=== PATIENT | male | born 1995 | race Caucasian/White ===

== ENCOUNTER 2025-02-04 11:55 | Inpatient (IN) | payer OTHER, MEDICAID, SELFPAY ==
[2025-02-04] VITALS (12 sets, daily range): BP systolic 113–150; BP diastolic 62–86; PULSE 67–124; RESP 16–22; TEMP 36.8–37.2; O2SAT 95–98; BMI 29.5; BMI 30.2
--- NOTE | ~2025-02-04 | XR_ITS ---
EXAMINATION: XR CHEST CLINICAL INFORMATION: Rhabdomyolysis COMPARISON: None available. TECHNIQUE: Frontal view of the chest was obtained. FINDINGS: Mild prominence of the interstitial markings. No hyperinflation. No consolidation, pleural effusion or pneumothorax. Cardiomediastinal silhouette size is normal. Osseous structures are intact. XR/XR chest 1V IMPRESSION: Probable mild interstitial lung edema in the correct clinical settings. Electronically signed by: Malik Means MD 02/04/2025 02:00 PM EDT
--- NOTE | 2025-02-04 12:03 | ECG_ITS ---
Test Reason : PALPATATIONS Blood Pressure : */* mmHG Vent. Rate : 94 BPM Atrial Rate : 94 BPM P-R Int : 162 ms QRS Dur : 100 ms QT Int : 354 ms P-R-T Axes : 52 1 55 degrees QTcB Int : 442 ms Normal sinus rhythm Normal ECG No previous ECGs available Referred By: Anuradha Rivers Electronically Signed By: CHILO DODSON
--- NOTE | 2025-02-04 12:07 | ED_ITS ---
HPI - General Adult General Chief complaint: General Medical Stated complaint: HIGH HR,HEAT EXPOSURE @ [employer] Time Seen by Provider: 02/04/25 11:58 Source: patient and EMS Mode of arrival: EMS Limitations: no limitations History of Present Illness ED Provider: DR. Rivers HPI narrative: 29-year-old male brought in by ambulance for evaluation of possible heat exhaustion, patient was at the [employer] training and performing drills 1st day while he was running with his duffle bag noticed by staff that patient got tired, overheated, fatigue, and felt palpitation and his heart rate was in the 170s patient was sent to the hospital for further evaluation and medical clearance. Patient stated that he had breakfast this morning, reporting very hot weather outside while he was doing his physical drills and training at [email or web address]. Patient reports no chest pain, no dizziness, felt little bit short of breath that he related to extensive exertion done at the [email or web address], patient overall feels fatigue and tired. Patient stated that he has no past medical history, feels no headache, no dizziness, no blurry vision, no chest pain, no abdominal pain, no nausea, no vomiting, no diarrhea. While patient's training patient had a small injury to the left 4th finger causing small laceration at the nail bed of the finger, otherwise no finger pain, with full range of motion. Related Data Home Medications ?Medication ?Instructions ?Recorded ?Confirmed No Known Home Meds 02/04/25 02/04/25 Allergies Allergy/AdvReac Type Severity Reaction Status Date / Time Penicillins Allergy Hives Verified 02/04/25 12:06 Review of Systems 2 Review of Systems: All other systems are reviewed and are negative Constitutional: Reports as per HPI and Reports no additional constitutional complaints Eyes: Reports as per HPI and Reports no additional eye complaints Reports system reviewed and no additional complaints, except as documented Cardiovascular: Reports as per HPI and Reports no additional cardiovascular complaints Respiratory: Reports as per HPI and Reports no additional respiratory complaints Gastrointestinal: Reports as per HPI and Reports no additional gastrointestinal complaints Genitourinary: Reports no additional female genitourinary complaints Musculoskeletal: Reports no additional musculoskeletal complaints Skin/Breast: Reports system reviewed and no additional complaints, except as docu Psychiatric: Reports no additional psychiatric complaints Endocrine: Reports no additional endocrine complaints Hematologic/Lymphatic: Reports no additional hematologic/lymphatic complaints Allergic/Immunologic: Reports no additional allergic/immunologic complaints Reports system reviewed and no additional complaints, except as documented and Reports Abnormal speech present [facility] Social History Social History Smoked in Last 30 Days: No Use of substances other than those prescribed or required for medical reasons: No Advance Directives: No Advance Directives Information Provided: No Do you have a plan to hurt others: No Plan Physical Exam ED Vital Signs: Vital Signs - 24 hr 02/04/25 12:03 02/04/25 12:06 02/04/25 12:12 Temperature 98.3 F Pulse Rate 106 H 108 H 99 Respiratory Rate 22 H Blood Pressure 130/70 130/70 113/77 Pulse Oximetry 96 Oxygen Delivery Method Room Air 02/04/25 12:13 02/04/25 12:13 02/04/25 12:13 Temperature 98.3 F Pulse Rate 101 H 106 H 113 H Respiratory Rate 22 H Blood Pressure 129/66 129/66 Pulse Oximetry 96 Oxygen Delivery Method Room Air 02/04/25 12:32 02/04/25 12:35 02/04/25 12:36 Temperature 99 F Pulse Rate 89 89 101 H Respiratory Rate 22 H Blood Pressure 116/62 116/62 113/65 Pulse Oximetry 95 Oxygen Delivery Method Room Air 02/04/25 12:37 Temperature Pulse Rate 109 H Respiratory Rate Blood Pressure 125/68 Pulse Oximetry Oxygen Delivery Method BMI result Body Mass Index 29.5 Vital signs have been reviewed and appear to be correct. Blood pressure elevated. Heart rate normal. Respiratory rate normal. Temperature normal. Oxygen saturation normal. Appearance: Alert. Oriented X3. No acute distress. Head: Normal external exam. Normocephalic. Atraumatic. No Smith signs noted. No raccoon eyes noted Eyes: PERRLA. EOMI. Conjunctiva and sclera normal. Eyelids normal. ENT: TM's Normal. Pharynx normal. Uvula midline. Moist mucous membranes. No trismus noted. No drooling noted. No muffled voice noted. Neck: Normal inspection. Neck supple. FROM. No adenopathy. Thyroid Normal. No meningeal signs. No neck mass noted. CVS: Normal heart rate and rhythm. Heart sound normal. No murmurs noted. Pulses normal throughout. Respiratory: No respiratory distress. Painless inspiration. Breath sounds normal. No wheezes/rales/rhonchi noted. Chest nontender. No accessory muscle usage noted or decreased air movement noted. Abdomen: Soft and nontender. Bowel sounds normal in all 4 quadrants. No distention noted. No organomegaly noted. No visible injury noted. Back: No CVA tenderness. Full range of motion noted. Skin: Skin warm and dry. Normal skin color. Normal skin turgor. No rashes/lesions/lacerations noted. Extremities: No lower extremity edema. Extremities exhibit normal range of motion. Extremities nontender. Neuro: Oriented X 3. Cranial nerve exam: II-XII are grossly intact No motor deficit. No sensory deficit. Reflexes normal. Course Reevaluation(s) Reevaluation #1: BANDAR secondary to mild rhabdomyolysis after having an extensive exercise in the extreme hot weather, elevated troponin with no chest pain or ST-elevation on the EKG. The case was discussed with Dr. Yee the plan was to continue with IV hydration, serial troponin. Leukocytosis likely secondary to stress. Time: 13:18 Medications Administered Generic Name Dose Route Start Last Admin Trade Name Freq PRN Reason Stop Dose Admin Lactated Ringer's 1,000 mls @ 125 mls/hr 02/04/25 14:15 02/04/25 14:14 Lr IVCONT 125 mls/hr .Q8H SHANE Administration Discontinued Medications Generic Name Dose Route Start Last Admin Trade Name Freq PRN Reason Stop Dose Admin Sodium Chloride 1,000 mls @ 999 mls/hr 02/04/25 12:03 02/04/25 13:37 Ns IV 02/04/25 13:03 Infused .Q1H1M ONE Infusion Lactated Ringer's 1,000 mls @ 999 mls/hr 02/04/25 13:00 02/04/25 13:34 Lr IV 02/04/25 14:00 999 mls/hr .Q1H1M SHANE Administration Medical Decision Making Differential Diagnosis Differential Diagnoses: The differential diagnosis associated with the presentation includes (Rhabdomyolysis, heat stroke, heat exhaustion, ACS, BANDAR, electrolyte derangement, severe anemia.) Admission/Observation Consideration of admission/observation: Escalation of care including admission/observation considered Consult Healthcare Provider Management of the patient was discussed with: Hospitalist (Dr. Armenta) and Business Area Manager (Dr. Yee) Lab Data MDM Lab Attestation statement: I reviewed the patient's lab results. 02/04/25 12:23 02/04/25 12:23 Labs: Lab Results 02/04/25 Range/Units 12:23 WBC 17.7 H (4.8-10.8) X10*3/uL RBC 4.78 (4.60-5.80) X10*6/uL Hgb 14.5 (14.0-18.0) g/dl Hct 38.9 L (42.0-52.0) % MCV 81.4 (80.0-98.0) fL MCH 30.3 (27.0-33.0) pg MCHC 37.3 H (31.0-36.0) g/dl RDW 12.4 (11.0-16.0) % Plt Count 251 (160-400) X10*3/uL MPV 9.5 (9.4-12.4) fL Immature Gran % (Auto) Cancelled Neut % (Auto) Cancelled Lymph % (Auto) Cancelled [place] % (Auto) Cancelled Eos % (Auto) Cancelled Baso % (Auto) Cancelled Lymph # (Auto) Cancelled [place] # (Auto) Cancelled Eos # (Auto) Cancelled Baso # (Auto) Cancelled Abs Immat Gran (auto) Cancelled Absolute Neuts (auto) Cancelled Absolute Nucleated RBC 0.000 (0.0-0.012) X10*3/uL Nucleated RBC % (auto) 0.0 (0.0-0.2) /100WBC Neutrophils % (Manual) 90 H (45-73) % Band Neutrophils % 3 (3-5) % Lymphocytes % (Manual) 4 L (20-40) % Monocytes % (Manual) 3 (2-11) % Abs Neuts (Manual) 16.5 H (2.0-8.3) X10*3/uL Lymphocytes # (Manual) 0.7 L (1.2-4.9) X10*3/uL Monocytes # (Manual) 0.5 (0.1-1.2) X10*3/uL Platelet Estimate NORMAL (NORMAL) Plt Morphology Comment NORMAL RBC Morphology NORMAL Sodium 140 (135-145) mmol/L Potassium 3.6 (3.3-5.1) mmol/L Chloride 106 (96-108) mmol/L Carbon Dioxide 23 (22-29) mmol/L Anion Gap 15 (12-20) BUN 18 H (9-16) mg/dL Creatinine 1.52 H (0.5-1.4) mg/dL Estim Creat Clear Calc 80.7 Estimated GFR 54 Random Glucose 91 (60-115) mg/dL Calcium 9.4 (8.4-10.2) mg/dL Total Bilirubin 0.6 (0.0-1.0) mg/dL Direct Bilirubin 0.3 (0.0-0.5) mg/dL AST 86 H (5-37) U/L ALT 101 H (0-40) U/L Alkaline Phosphatase 115 (39-117) U/L Total Creatine Kinase 2654 H (38-174) U/L Troponin I High Sens 234.8 H* (<3.5-35.0) ng/L Total Protein 7.4 (6.5-8.0) g/dL Albumin 4.8 (3.5-5.0) g/dL Lipase 21 (8-78) U/L Independent Interpretation I performed an independent interpretation of an: EKG (Normal sinus rhythm at 94 beats per minutes, normal intervals, no ST-T-T changes, no old EKG to compare.) and Plain X-Ray (Chest: Probable mild interstitial lung edema in the correct clinical settings.) Radiology Impression Discussion of test interpretation with radiology: I have reviewed the radiologist's reading. Critical Care Time Critical Care Time Critical Care Time: Yes Total Critical Care Time: 40 Attestation: The patient was critically ill with a high probability of imminent or life- threatening deterioration. I spent greater than 30 minutes of discontinuous time evaluating the patient, delivering critical care at the bedside, discussing evaluating data with consultants. Critical care time does not include time spent performing separately billable procedures or teaching. Time spent performing critical care was 40 minutes. Discharge Plan Discharge Clinical Impression: Acute renal failure due to rhabdomyolysis, Elevated troponin Patient Disposition: Admitted As Inpatient
[2025-02-04 12:28] LABS: Hematocrit 38.9 % (42.0-52.0); Hemoglobin 14.5 g/dl (14.0-18.0); Mean Corpuscular HGB Conc 37.3 g/dl (31.0-36.0); Mean Corpuscular Hemoglobin 30.3 pg (27.0-33.0); Mean Corpuscular Volume 81.4 fL (80.0-98.0); NRBC Abs Auto 0.000 X10*3/uL (0.0-0.012); NRBC Pct Auto 0.0 /100WBC (0.0-0.2); Platelet Count 251 X10*3/uL (160-400); Red Blood Count 4.78 X10*6/uL (4.60-5.80)
[2025-02-04 12:30] LABS: WBC ABN SCTR FOR CBC 1; White Blood Count 17.7 X10*3/uL (4.8-10.8)
[2025-02-04 12:45] LABS: Alanine Aminotransferase 101 U/L (0-40); Albumin Level 4.8 g/dL (3.5-5.0); Alkaline Phosphatase 115 U/L (39-117); Anion Gap 15 (12-20); Aspartate Amino Transferase 86 U/L (5-37); Blood Urea Nitrogen 18 mg/dL (9-16); Calcium 9.4 mg/dL (8.4-10.2); Carbon Dioxide 23 mmol/L (22-29); Chloride 106 mmol/L (96-108); Creatinine Clr Calc Pharmacy 80.7; Estimated Glomerular Filt Rate 54; Lipase 21 U/L (8-78); Potassium 3.6 mmol/L (3.3-5.1); Sodium 140 mmol/L (135-145); Total Protein 7.4 g/dL (6.5-8.0)
[2025-02-04 12:54] LABS: Troponin-I High Sensitivity 234.8 ng/L (<3.5-35.0)
[2025-02-04 12:56] LABS: Band Neutrophils Percent 3 % (3-5); Lymphocytes Absolute Manual 0.7 X10*3/uL (1.2-4.9); Lymphocytes Percent Manual 4 % (20-40); Monocytes Absolute Manual 0.5 X10*3/uL (0.1-1.2); Monocytes Percent Manual 3 % (2-11); Neutrophils Absolute Manual 16.5 X10*3/uL (2.0-8.3); Neutrophils Percent Manual 90 % (45-73)
[2025-02-04 12:58] LABS: RBC Morphology NORMAL
[2025-02-04] MEDS: Lactated Ringers 1,000 ML 999 ML IV (13:34)
--- NOTE | 2025-02-04 14:07 | P.HPHOSP_ITS ---
History of Present Illness Date of Service: 02/04/25 Chief Complaint: fatigue 29M no significant medical history presented with fatigue. Patient brought in by ambulance from [facility]. 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 He started to feel weak, overheated and tired. Noted to be tachycardic and hypertensive. Rested but tachycardia did not resolve so EMS was called. Denies any chest pain, shortness breath. In ED lab significant for a creatinine of 1.52, AST 86/ALT 101 (patient reports he had elevated transaminases on outpatient testing previously), total CPK 2654, troponin 234 - normal EKG, Review of Systems 2 Review of Systems: Yes all other systems are reviewed and are negative [facility] Social History Smoked in Last 30 Days: No Use of substances other than those prescribed or required for medical reasons: No Do you have a plan to hurt others: No Plan Meds Allergies Allergy/AdvReac Type Severity Reaction Status Date / Time Penicillins Allergy Hives Verified 02/04/25 12:06 Active Medications: Current Medications Acetaminophen (Acetaminophen 325 Mg Tablet) 650 mg PO Q6H PRN PRN Reason: Pain, Mild 1-3,fever,headache Calcium Carbonate (Calcium Carbonate 750 Mg Tab.Chew) 750 mg PO Q4H PRN PRN Reason: Heartburn Lactated Ringer's (Lr) 1,000 mls @ 125 mls/hr IVCONT .Q8H SHANE Magnesium Hydroxide (Milk Of Magnesia 30 Ml Oral.Susp) 30 ml PO DAILY PRN PRN Reason: Constipation Melatonin (Melatonin 3 Mg Tablet) 6 mg PO BEDTIME PRN PRN Reason: Insomnia Sodium Chloride (0.9 % Sodium Chloride Flush 3 Ml Syringe) 3 ml IVFLUSH QSHIFT SHANE Physical Exam 2 Vital Signs and Narrative: Vital Signs: Last Vital Signs Temp 99 F 02/04/25 12:32 Pulse 109 H 02/04/25 12:37 Resp 22 H 02/04/25 12:32 BP 125/68 02/04/25 12:37 Pulse Ox 95 02/04/25 12:32 O2 Del Method Room Air 02/04/25 12:32 BMI result Body Mass Index 29.5 General: AO X 3, no acute distress Resp: CTA bilateral, no accessory muscles used CVS: S1,S2,RRR GI: soft, non tender, non distended Neuro: motor grossly intact, alert Psych: appropriate affect, appropriate insight malar rash Results Labs 02/04/25 12:23 02/04/25 12:23 Labs: Laboratory Results - last 24 hr 02/04/25 12:23 MCV 81.4 MCH 30.3 MCHC 37.3 H RDW 12.4 Plt Count 251 MPV 9.5 Immature Gran % (Auto) Cancelled Neut % (Auto) Cancelled Lymph % (Auto) Cancelled [place] % (Auto) Cancelled Eos % (Auto) Cancelled Baso % (Auto) Cancelled Lymph # (Auto) Cancelled [place] # (Auto) Cancelled Eos # (Auto) Cancelled Baso # (Auto) Cancelled Abs Immat Gran (auto) Cancelled Absolute Neuts (auto) Cancelled Absolute Nucleated RBC 0.000 Nucleated RBC % (auto) 0.0 Neutrophils % (Manual) 90 H Band Neutrophils % 3 Lymphocytes % (Manual) 4 L Monocytes % (Manual) 3 Abs Neuts (Manual) 16.5 H Lymphocytes # (Manual) 0.7 L Monocytes # (Manual) 0.5 Platelet Estimate NORMAL Plt Morphology Comment NORMAL RBC Morphology NORMAL Anion Gap 15 Estim Creat Clear Calc 80.7 Estimated GFR 54 Random Glucose 91 Calcium 9.4 Total Bilirubin 0.6 Direct Bilirubin 0.3 AST 86 H ALT 101 H Alkaline Phosphatase 115 Total Creatine Kinase 2654 H Total Protein 7.4 Albumin 4.8 Lipase 21 Imaging Radiologist's Impressions: Impressions Chest X-Ray 02/04/25 13:45 IMPRESSION: Probable mild interstitial lung edema in the correct clinical settings. Electronically signed by: Malik Means MD 02/04/2025 02:00 PM EDT RP Assessment and Plan (1) Elevated troponin: Status: Acute Plan 29M no significant medical history presented with fatigue found to have abnormal troponin, CPK, elevated creatinine, elevated transaminases Acute kidney injury due to acute rhabdomyolysis IV fluids, monitor BMP and CPK Elevated troponin disproportionate to level of rhabdo Check repeat, echo, cardio eval Elevated transaminases Patient reports these are chronic Check A1c, iron studies, viral hepatitis, MIRTA Low risk for DVT-early ambulation Full Code Quality Stroke Does the patient have a stroke diagnosis?: No VTE Prior VTE?: No VTE Risk Level:: Medical - low VTE Device Contraindication: Treatment Not Indicated VTE Drug Contraindication: Treatment Not Indicated
[2025-02-04] MEDS: Lactated Ringers 1,000 ML 125 ML IVCONT ×2 (14:14→22:05)
--- NOTE | 2025-02-04 15:08 | PHA.MEDREC ---
Pharmacy Consult ? Medication Reconciliation Pharmacy has completed the medication reconciliation. Patient confirmed that he does not take any medication at home.
[2025-02-04 15:39] LABS: Appearance Urine Clear; Glucose Urine UA Negative (Negative); PH 5.5 (5.0-9.0); Specific Gravity - Urine <= 1.005 (1.005-1.025); UMIC TRIGGER UACC YES
--- OUTSIDE RECORDS SUMMARY | 2025-02-04 15:44 | XMS_ITS | Encounter Summary ---
Author Organization [facility] Address [address] [place] [address] Care Team Providers Care Aircraft Ordnance Systems Mechanic Name Role Phone Demi Lee MD Primary Care Provider [phone] Demi Lee MD Primary Care Provider [phone] Encounter Details Date Type Department Care Team (Late Contact Info) Description 09/01/2018 Orders Only [facility] Nephrology [address] [phone] Amanda Rick MD [address] [place] [id number] Social History Tobacco Use Types Packs/Day Years Used Date Smoking Tobacco: Never Smokeless Tobacco: Never Alcohol Use Standard Drinks/Week Comments Yes 0 (1 standard drink = 0.6 oz pur e alcohol) <12 beers/week Sex and Gender Information Value Date Recorded Sex Assigned at Not on file Legal Sex Male 12:44 AM EDT Gender Identity Male 10/17/2023 11:40 AM EDT Sexual Orientation Not on file documented as of this encounter Plan of Treatment Upcoming Encounters Date Type Department Care Team (Late Contact Info) Description 07/09/2025 9:05 AM EST CPE - Comprehensive Physical Exam [facility] [address] [place], [place] [address] [place] [id number] Charity Oliveira NP [address] [place] [address] CPE documented as of this encounter Procedures * Due to [place] M-Audio law, this organization might not be sharing negative HIV tests. Procedure Name Priority Date/Time Associated Diagnosis Comments URINE PROTEIN, TOTAL,RANDOM (W/O CREATININE) Routine 09/01/2018 12:14 PM EST Unilateral agenesis of kidney ALBUMIN (MICROALBUMIN), RANDOM URINE, WITH CREATININE Routine 09/01/2018 12:14 PM EST Unilateral agenesis of kidney RENAL FUNCTION PANEL (W/ EGFR) Routine 09/01/2018 12:14 PM EST Unilateral agenesis of kidney documented in this encounter Results * Due to [place] M-Audio law, this organization might not be sharing negative HIV tests. * RENAL FUNCTION PANEL (W/ EGFR) (09/01/2018 12:14 PM EST) Glucose 88 65 - 99 mg/dL [facility] Comment:Fasting reference in terval Urea Nitrogen Blood (BUN) 17 7 - 25 mg/dL [facility] Creatinine 1.08 0.60 - 1.35 mg/dL [facility] EGFR 96 > OR = 60 mL/min/1. 73m2 [facility] GFR () 111 > OR = 60 mL/min/1. 73m2 [facility] BUN/Creatinine Ratio NOT APPLICABLE 6 - 22 (calc) [facility] Sodium 136 135 - 146 mmol/L [facility] Potassium 4.0 3.5 - 5.3 mmol/L [facility] Chloride 102 98 - 110 mmol/L [facility] Carbon dioxide 27 20 - 32 mmol/L [facility] Calcium 9.4 8.6 - 10.3 mg/dL [facility] Phosphate 2.8 2.5 - 4.5 mg/dL [facility] Albumin 4.5 3.6 - 5.1 g/dL [facility] 09/01/2018 12:1 4 PM EST 09/02/2018 1:07 AM EST Narrative Resulting Agency Comment [id number] Amanda Rick MD LABORATORY Final Result Performing Organization Address City/State/[facility] Co de Phone Number [facility] [address] [place] [address] * ALBUMIN (MICROALBUMIN), RANDOM URINE, WITH CREATININE (09/01/2018 12:14 PM EST) Creatinine (Urine) 114 20 - 320 mg/dL [facility] Albumin (Urine) 0.4 mg/dL [facility] Comment: Reference Range Not established Albumin/Creatinine (Urine) 4 <30 mcg/mg creat [facility] Comment: The ADA defines abnormalities in albumin excretion as follows: Category Result (mcg/mg creatinine) Normal <30 Microalbuminuria 30-299 Clinical albuminuria > OR = 300 The ADA recommends that at least two of three specimens collected within a 3-6 month period be abnormal before considering a patient to be within a diagnostic category. 09/01/2018 12:1 4 PM EST 09/02/2018 1:07 AM EST Narrative Resulting Agency Comment [id number] Amadna Rick MD LABORATORY Final Result Performing Organization Address [facility] de Phone Number [facility] [address] [place] [address] * URINE PROTEIN, TOTAL,RANDOM (W/O CREATININE) (09/01/2018 12:14 PM EST) Protein (Urine) 7 5 - 25 mg/dL [facility] 09/01/2018 12:1 4 PM EST 09/02/2018 1:07 AM EST Narrative Resulting Agency Comment [id number] Amanda Rick MD LABORATORY Final Result Performing Organization Address [facility] de Phone Number [facility] [address] [place] [address] documented in this encounter Visit Diagnoses Diagnosis 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
--- OUTSIDE RECORDS SUMMARY | 2025-02-04 15:44 | XMS_ITS | Referral Summary ---
Author Organization [facility] Address [address] [place] [address] Care Team Providers Care Construction Executive Name Role Phone Demi Lee MD Primary Care Provider [phone] Encounters * This document contains information received from the source organization and may not represent a complete record from that organization. Date Type Department Care Team Description 12/04/2024 Telephone [facility] [address] [place] [address] Telephone Intake, Staff PAC Test Result Request 11/23/2024 11:00 AM EDT Clinical Support [facility] Cardiology [address] [place] [address] Ari Medina LPN Pre-employment examination 11/21/2024 3:30 PM EDT Procedure visit [facility] [address] [place] [address] Sherrill Keen, AUD, CCC-A Hearing loss of left ear, unspecified hearing loss type (Primary Dx); Encounter for hearing conservation and treatment 11/19/2024 1:54 PM EDT - 11/19/2024 11:59 PM EDT Hospital Encounter [facility] Pulmonary Function Lab [address] [place] [address] Pre-employment examination Discharge Disposition: Home or Self Care (01) from Last 3 Months Social History Tobacco Use Types Packs/Day Years Used Date Smoking Tobacco: Never Assessed Sex and Gender Information Value Date Recorded Sex Assigned at Male 11/16/2024 12:21 PM EDT Legal Sex Male 4:33 AM EDT Gender Identity Not on file Sexual Orientation Not on file Plan of Treatment Not on file Procedures * Due to [place] itravel law, this organization might not be sharing negative HIV tests. Procedure Name Priority Date/Time Associated Diagnosis Comments ECG 12-LEAD Routine 11/23/2024 10:55 AM EDT Pre-employment examination HEART & VASCULAR - SCANNED 11/23/2024 PULMONARY FUNCTION TEST Routine 11/19/2024 1:58 PM EDT Pre-employment examination from Last 3 Months Results * Due to [place] itravel law, this organization might not be sharing negative HIV tests. * ECG 12 lead For Preop? No (11/23/2024 10:55 AM EDT) Ventricular Rate EKG 77 BPM MUSE EKG Atrial Rate 77 BPM MUSE EKG AZ Interval 156 ms MUSE EKG QRS Interval 100 ms MUSE EKG QT Interval 366 ms MUSE EKG QTC Interval 414 ms MUSE EKG P [place] 56 degrees MUSE EKG R [place] 5 degrees MUSE EKG T Wave [place] 36 degrees MUSE EKG 11/23/2024 10:5 5 AM EDT 11/28/2024 12:44 PM EDT Impressions MUSE EKG - 11/28/2024 12:44 PM EDT NORMAL SINUS RHYTHM NORMAL ECG NO PREVIOUS ECGS AVAILABLE Confirmed by Luigi Tejeda ([id number]) on 11/28/2024 12:44:17 PM us Lori Jenkins [employer] ECG ORDERABLES Final Result MUSE EKG * HEART & VASCULAR - SCANNED (11/23/2024) Anatomical Region Laterality Modality Other us Onbase Scan Myah SCANNED PROCEDURES Final Resu lt * Pulmonary Function Test UNV; Spirometry; Spirometry alone (No bronchodilator); Pre employment [employer](11/19/2024 1:58 PM EDT) FVC (L) 5.62 L [facility] FVC % Predicted 112 % [facility] FEV1 (L) 4.99 L [facility] FEV1 % Predicted 120 % [facility] FEV1/FVC Ratio 89 % [facility] 11/19/2024 1:58 PM EDT Narrative [facility] - 11/19/2024 1:58 PM EDT There is no ventilatory impairment demonstrated by spirometry. The findings are within normal limits. Lori Jenkins [employer] PFT ORDERABLES Final Result [facility] from Last 3 Months Insurance [place] Care Teams Construction Executive Relationship Specialty Start Date End Date Demi Lee MD [address] [place] [id number] PCP - General Internal Medicine 11/16/24
--- NOTE | 2025-02-04 16:00 | CA_ITS ---
Transthoracic Echocardiogram Patient (Last, First, Middle): Yoni Hawkins, Gender: Male Date of : 1995 Age: 29 Procedure Date: 02/04/2025 Procedure Type: Transthoracic Echocardiogram Location: ER Height: 177.8 cm Weight: 92.99 kg BSA: 2.11 m2 Heart Rate: 87 bpm BP: 125 / 68 mmHg [employer]indery Worker: SB Referring MD: Chapincito Armenta MD Symptoms: elevated trop Study Quality: Adequate w contrast ECG Rhythm: Sinus Conclusions: - The left ventricular systolic function is mildly decreased. The calculated ejection fraction is 48% by biplane method. - No obvious valvular pathology seen on this study. Findings Procedure Information Contrast agent, definity, is being given per protocol without apparent complications. Left Ventricle Normal left ventricular cavity size. There is normal left ventricular wall thickness. The left ventricular systolic function is mildly decreased. The calculated ejection fraction is 48% by biplane method. There is mild global hypokinesis. Diastolic function is normal for age. Right Ventricle Normal right ventricular cavity size and systolic function. Atria Both atria are normal in size. Aortic Valve There is a normal trileaflet aortic valve. There is no aortic valve stenosis. There is no aortic valve regurgitation. Mitral Valve The mitral valve appears normal. There is trace mitral valve regurgitation. There is no mitral valve stenosis. Pulmonic Valve The pulmonic valve is likely normal. Tricuspid Valve Normal tricuspid valve structure. There is trace tricuspid valve regurgitation. There is no evidence of pulmonary hypertension. Great Vessels The asc aorta and aortic arch are normal in size. Venous The inferior vena cava is normal in size. Pericardium/Pleural There is no evidence of pericardial effusion. Prior Study Comparison No prior study available for comparison. Recommendations, Care & Conclusions No obvious valvular pathology seen on this study. Measurements 2D Linear Measurements IVSd: 0.79 0.6-0.9/0.6-1.0 cm LVIDd: 5.51 3.9-5.3/4.2-5.9 cm LVIDd Index: 2.61 2.4-3.2/2.2-3.1 cm/m2 LVIDs: 3.90 2.0-3.6 cm LVPWd: 0.65 0.7-1.1 cm LA Diam: 3.70 2.7-3.8/3.0-4.0 cm LAIDs Index: 1.75 1.5-2.3 cm/m2 LV Mass: 175.91 67-162/88-224 g LV Mass Index: 83.37 43-95/49-115 g/m2 LVOT Diam: 2.30 3.0+(-)1.3 cm 2D Systolic Function EF 4C: 45.30 >55% EF 2C: 50.40 >55% EF BiP: 47.50 >55% Mitral Valve MV Pk E: 0.91 MV PK A: 0.48 MV Decel Time: 188.00 E/A: 1.90 E'Lateral: 11.40 E'Medial: 8.81 E/E' Med: 10.30 E/E' Lat: 8.00 PHT: 55.00 MVA PHT: 4.00 Decel [place]: 4.82 Aortic Valve AoV Pk Sam: 1.21 AoV Pk Grad: 6.00 VONNIE: 4.12 LVOT LVOT Pk Sam: 1.21 LVOT Mn Sam: 0.87 LVOT VTI: 0.24 LVOT Pk Grad: 6.00 LVOT Mn Grad: 4.00 LVOT Diam: 2.30 LVOT Area: 4.15 Diastolic Function MV Pk E: 0.91 MV Pk A: 0.48 E/A: 1.90 E'Medial: 8.81 E/E' Med: 10.30 E' Laterial: 11.40 E/E' Lat: 8.00 Right Ventricle TAPSE (mm): 19.40 TVS' Sam: 13.40 Tricuspid Valve TR Pk Sam: 2.14 TR Pk Grad: 18.00 RA Press: 8.00 RVSP: 26.00 Great Vessels Aorta Sinus of Valsalva: 3.10 2.0-3.5 cm Ao Asc: 3.00 2.1-3.4 cm Ao Arch: 2.50 Pulmonary Veins Pulm Vein S/D 0.90 Pulmonary Valve PV Pk Sam: 0.89 Peak PV Grad: 3.00 Updated in Other Vendor System with Status of Final Andres Yee MD electronically signed on 02/04/2025 3:43:51 PM with status of Final
[2025-02-04 16:01] LABS: Troponin-I High Sensitivity 234.9 ng/L (<3.5-35.0)
[2025-02-05 03:20] VITALS: BP 122/67; PULSE 78; RESP 16; TEMP 36.6; O2SAT 98
[2025-02-05] MEDS: Lactated Ringers 1,000 ML 125 ML IVCONT (06:43)
[2025-02-05 07:41] LABS: Hematocrit 36.0 % (42.0-52.0); Hemoglobin 13.0 g/dl (14.0-18.0); Mean Corpuscular HGB Conc 36.1 g/dl (31.0-36.0); Mean Corpuscular Hemoglobin 30.2 pg (27.0-33.0); Mean Corpuscular Volume 83.7 fL (80.0-98.0); NRBC Abs Auto 0.000 X10*3/uL (0.0-0.012); NRBC Pct Auto 0.0 /100WBC (0.0-0.2); Platelet Count 200 X10*3/uL (160-400); Red Blood Count 4.30 X10*6/uL (4.60-5.80); White Blood Count 8.4 X10*3/uL (4.8-10.8)
[2025-02-05 07:58] LABS: Alanine Aminotransferase 94 U/L (0-40); Albumin Level 3.9 g/dL (3.5-5.0); Alkaline Phosphatase 95 U/L (39-117); Anion Gap 9 (12-20); Aspartate Amino Transferase 183 U/L (5-37); Blood Urea Nitrogen 14 mg/dL (9-16); Calcium 8.6 mg/dL (8.4-10.2); Carbon Dioxide 23 mmol/L (22-29); Chloride 116 mmol/L (96-108); Creatinine Clr Calc Pharmacy 114.9; Estimated Glomerular Filt Rate > 60; Hemoglobin A1C 114.6965 umol/L; Iron 94 mcg/dL (45-160); Percent Iron Saturation 41 % (15-50); Potassium 3.5 mmol/L (3.3-5.1); Sodium 144 mmol/L (135-145); Total Hemoglobin (HGBA1C) 3486.7427 umol/L; Total Iron Binding Capacity 232 mcg/dL (228-428); Total Protein 6.3 g/dL (6.5-8.0); Unsaturated Iron Binding 138 ug/dL
[2025-02-05 08:00] VITALS: BP 130/87; PULSE 73; RESP 18; TEMP 36.6; O2SAT 96
[2025-02-05 08:24] LABS: HBS Num1 > 1000.00 mIU/mL (0-7.99); HBc Num1 0.09 S/CO (0.00-0.79); HBsAGNum1 0.41 S/CO (0.00-0.99); Hepatitis B Surface Antigen Negative (Negative); ~HepC Num1 0.13 S/CO (0.00-0.79); ~Hepatitis B Surface Antibody REACTIVE (Nonreactive); ~Hepatitis C Antibody Nonreactive (Nonreactive)
--- NOTE | 2025-02-05 08:59 | MHC.CM.PN ---
CM met with Patient at bedside and addressed DO with him (original was given to Patient and a copy has been placed on the chart). Patient lives in a house with his and 14 month old Son and he is functionally independent. Home/self care is Patient's goal and CM has initiated and will follow for dc planning. PCP is Dr. Demi Lee and will transport at time of dc.
--- NOTE | 2025-02-05 09:21 | P.CONCA_ITS ---
History of Present Illness History of Present Illness Date of Service: 02/05/25 Chief complaint: Tachycardia, Trop Narrative: This is a cardiology consultation regarding elevated cardiac biomarkers. Patient was going through [employer] drills in the heat yesterday. He was holding duffel bags weighing more than 40 lb or so. In that context, it seems that he was feeling weak, over he did, tired. Then brought to the ER where he was tachycardic and with abnormal biomarkers including elevated kidney function as well as liver abnormalities. Elevated CK/troponin. Appears that he was having probably rhabdomyolysis related to exertion heat and humidity. Subsequently, admitted for further care. He has been getting IV fluids. Of note, no previous cardiac history. He did not have any exertional chest pain or shortness of breath or in fact anything clear-cut from cardiac standpoint. Today, he states he feels okay. Review of Systems 2 Review of Systems: Yes all other systems are reviewed and are negative Constitutional: Constitutional: Reports as per HPI and Reports no additional constitutional complaints Eyes: Eyes: Reports as per HPI and Denies no additional eye complaints ENT: Denies system reviewed and no additional complaints, except as documented and Reports as per HPI Cardiovascular: Cardiovascular: Reports as per HPI, Reports no additional cardiovascular complaints, Denies acrocyanosis, Denies cool extremities, Denies chest pain, Denies leg edema, Denies lightheadedness, Denies palpitations and Denies dyspnea Respiratory: Respiratory: Reports as per HPI, Denies no additional respiratory complaints and Denies dyspnea Gastrointestinal: Gastrointestinal: Reports as per HPI and Denies no additional gastrointestinal complaints Genitourinary: Genitourinary: Reports no additional male genitourinary complaints and Reports as per HPI Musculoskeletal: Musculoskeletal: Reports no additional musculoskeletal complaints and Reports as per HPI Integumentary/Breasts: Skin/Breast: Reports system reviewed and no additional complaints, except as docu Neurologic: Reports system reviewed and no additional complaints, except as documented and Reports as per HPI Psychiatric: Psychiatric: Reports no additional psychiatric complaints and Reports as per HPI Endocrine: Endocrine: Reports no additional endocrine complaints, Reports as per HPI and Denies palpitations Hematologic/Lymphatic: Hematologic/Lymphatic: Reports no additional hematologic/lymphatic complaints and Reports as per HPI Allergic/Immunologic: Allergic/Immunologic: Reports no additional allergic/immunologic complaints and Reports as per HPI [facility] Family History Family History Father No problems noted. Mother No problems noted. Social History Social History Patient Tobacco Use Status: Never used Tobacco Smoked in Last 30 Days: No Use of substances other than those prescribed or required for medical reasons: No Currently Displaying Signs/Symptoms of Drug Intoxication Withdrawal: No Advance Directives: No Advance Directives Information Provided: No Advance Directives on File: No Do you have a plan to hurt others: No Plan service: No Meds Allergies Allergy/AdvReac Type Severity Reaction Status Date / Time Penicillins Allergy Hives Verified 02/04/25 12:06 Active Medications: Current Medications Acetaminophen (Acetaminophen 325 Mg Tablet) 650 mg PO Q6H PRN PRN Reason: Pain, Mild 1-3,fever,headache Calcium Carbonate (Calcium Carbonate 750 Mg Tab.Chew) 750 mg PO Q4H PRN PRN Reason: Heartburn Lactated Ringer's (Lr) 1,000 mls @ 150 mls/hr IVCONT .Q6H40M [facility] Last Infusion: 02/05/25 08:58 Dose: 150 mls/hr Magnesium Hydroxide (Milk Of Magnesia 30 Ml Oral.Susp) 30 ml PO DAILY PRN PRN Reason: Constipation Melatonin (Melatonin 3 Mg Tablet) 6 mg PO BEDTIME PRN PRN Reason: Insomnia Sodium Chloride (0.9 % Sodium Chloride Flush 3 Ml Syringe) 3 ml IVFLUSH QSHIFT [facility] Last Admin: 02/05/25 08:59 Dose: Not Given Home Medications ?Medication ?Instructions ?Recorded ?Confirmed ?Last Taken ?Type No Known Home Meds 02/04/25 02/04/25 Un known History Physical Exam 2 Vital Signs: Vital Signs: Last Vital Signs Temp 97.8 F 02/05/25 08:00 Pulse 73 02/05/25 08:00 Resp 18 02/05/25 08:00 BP 130/87 02/05/25 08:00 Pulse Ox 96 02/05/25 08:00 O2 Del Method Room Air 02/05/25 08:00 BMI result Body Mass Index 30.2 Const: General: comfortable and no acute distress O rientation/consciousness: patient oriented x3 HEENT: Other: Unremarkable Head: Yes normal to inspection Neck: Neck: Yes normal visual inspection Chest: Chest palpation & inspection: normal inspection of the chest Resp: Auscultation: clear to auscultation bilaterally Cardio: Palpation: normal PMI Heart sounds: S1 normal heart sound present, S2 normal heart sound present, no gallops, no murmurs and no rubs GI: Palpation (GI): Soft to palpation Back/Spine/Pelvis: Other: unremarkable Skin: General skin exam: no rashes or lesions noted Neuro: General: patient oriented x3 Extrem: General: Yes normal to inspection Psych: Mental Status: mental status grossly normal Objective Labs and Meds 02/05/25 07:24 02/05/25 07:24 Lab results: Laboratory Results - last 24 hr 02/04/25 02/04/25 02/04/25 12:23 15:29 15:32 WBC 17.7 H RBC 4.78 Hgb 14.5 Hct 38.9 L MCV 81.4 MCH 30.3 MCHC 37.3 H RDW 12.4 Plt Count 251 MPV 9.5 Immature Gran % (Auto) Cancelled Neut % (Auto) Cancelled Lymph % (Auto) Cancelled [place] % (Auto) Cancelled Eos % (Auto) Cancelled Baso % (Auto) Cancelled Lymph # (Auto) Cancelled [place] # (Auto) Cancelled Eos # (Auto) Cancelled Baso # (Auto) Cancelled Abs Immat Gran (auto) Cancelled Absolute Neuts (auto) Cancelled Absolute Nucleated RBC 0.000 Nucleated RBC % (auto) 0.0 Neutrophils % (Manual) 90 H Band Neutrophils % 3 Lymphocytes % (Manual) 4 L Monocytes % (Manual) 3 Abs Neuts (Manual) 16.5 H Lymphocytes # (Manual) 0.7 L Monocytes # (Manual) 0.5 Platelet Estimate NORMAL Plt Morphology Comment NORMAL RBC Morphology NORMAL Sodium 140 Potassium 3.6 Chloride 106 Carbon Dioxide 23 Anion Gap 15 BUN 18 H Creatinine 1.52 H Estim Creat Clear Calc 80.7 Estimated GFR 54 Random Glucose 91 Estimat Average Glucose Hemoglobin A1c % Calcium 9.4 Iron TIBC % Saturation Unsat Iron Binding Total Bilirubin 0.6 Direct Bilirubin 0.3 AST 86 H ALT 101 H Alkaline Phosphatase 115 Total Creatine Kinase 2654 H Troponin I High Sens 234.8 H* 234.9 H* Total Protein 7.4 Albumin 4.8 Lipase 21 Urine Color Yellow Urine Appearance Clear Urine pH 5.5 Ur Specific [place] <= 1.005 Urine Protein Negative Urine Glucose (UA) Negative Urine Ketones Trace Urine Blood Large (3+) H Urine Nitrite Negative Ur Leukocyte Esterase Negative Urine RBC 0-2 Urine WBC 0-5 Ur Squamous Epith Cells 0-2 Urine Bacteria None Seen Hyaline Casts 0-2 Hep Bs Antigen Hep Bs Antibody Hep B Core Total Ab Hepatitis C Ab (EIA) 02/05/25 07:24 WBC 8.4 RBC 4.30 L Hgb 13.0 L Hct 36.0 L MCV 83.7 MCH 30.2 MCHC 36.1 H RDW 12.8 Plt Count 200 MPV 9.7 Immature Gran % (Auto) Neut % (Auto) Lymph % (Auto) [place] % (Auto) Eos % (Auto) Baso % (Auto) Lymph # (Auto) [place] # (Auto) Eos # (Auto) Baso # (Auto) Abs Immat Gran (auto) Absolute Neuts (auto) Absolute Nucleated RBC 0.000 Nucleated RBC % (auto) 0.0 Neutrophils % (Manual) Band Neutrophils % Lymphocytes % (Manual) Monocytes % (Manual) Abs Neuts (Manual) Lymphocytes # (Manual) Monocytes # (Manual) Platelet Estimate Plt Morphology Comment RBC Morphology Sodium 144 Potassium 3.5 Chloride 116 H Carbon Dioxide 23 Anion Gap 9 L BUN 14 Creatinine 1.08 Estim Creat Clear Calc 114.9 Estimated GFR > 60 Random Glucose 93 Estimat Average Glucose 103 Hemoglobin A1c % 5.2 Calcium 8.6 D Iron 94 TIBC 232 % Saturation 41 Unsat Iron Binding 138 Total Bilirubin 0.7 Direct Bilirubin 0.3 AST 183 H ALT 94 H Alkaline Phosphatase 95 Total Creatine Kinase 6608 H Troponin I High Sens Total Protein 6.3 L Albumin 3.9 Lipase Urine Color Urine Appearance Urine pH Ur Specific [place] Urine Protein Urine Glucose (UA) Urine Ketones Urine Blood Urine Nitrite Ur Leukocyte Esterase Urine RBC Urine WBC Ur Squamous Epith Cells Urine Bacteria Hyaline Casts Hep Bs Antigen Negative Hep Bs Antibody REACTIVE Hep B Core Total Ab Nonreactive Hepatitis C Ab (EIA) Nonreactive ECG Interpretation: EKG with underlying sinus rhythm at 94/Min; no ischemic changes; normal NC and corrected QT. Imaging Radiologist's impression: Impressions Chest X-Ray 02/04/25 13:45 IMPRESSION: Probable mild interstitial lung edema in the correct clinical settings. Electronically signed by: Malik Means MD 02/04/2025 02:00 PM EDT RP Assessment and Plan (1) Cardiomyopathy: Status: Acute (2) Acute renal failure due to rhabdomyolysis: Status: Acute (3) Elevated troponin: Status: Acute (4) Abnormal LFTs: Status: Acute Plan Echocardiogram with LVEF of 48% by biplane. Mild global hypokinesis. Otherwise unremarkable study. Elevated creatinine kinase/troponin most likely from rhabdomyolysis. Elevated liver enzymes/creatinine again most likely all part of the big picture. Cardiomyopathy itself could be from stress-induced etiology related to the above. Less likely he has a primary cardiomyopathy pre-existing. Current recommendation is to hydrate as much able. We need to ensure the CK is actually coming down. Otherwise, he is going to need a repeat echocardiogram in 3-4 weeks to ensure it is recovered to normal level. May need an ETT as well. Plan discussed with patient. He understands. Procedures Date of Service Date of Service: 02/05/25
--- NOTE | 2025-02-05 09:26 | HO.PM.IMPN ---
Subjective Subjective Date of Service: 02/05/25 Interval History: no complaints Physical Exam Vital Signs: Vital Signs: Last Vital Signs Temp 97.8 F 02/05/25 08:00 Pulse 73 02/05/25 08:00 Resp 18 02/05/25 08:00 BP 130/87 02/05/25 08:00 Pulse Ox 96 02/05/25 08:00 O2 Del Method Room Air 02/05/25 08:00 BMI result Body Mass Index 30.2 General: AO X 3, no acute distress Resp: CTA bilateral, no accessory muscles used CVS: S1,S2,RRR GI: soft, non tender, non distended Neuro: motor grossly intact, alert Psych: appropriate affect, appropriate insight Objective Data Active Medications Acetaminophen (Acetaminophen 325 Mg Tablet) 650 mg PO Q6H PRN PRN Reason: Pain, Mild 1-3,fever,headache Calcium Carbonate (Calcium Carbonate 750 Mg Tab.Chew) 750 mg PO Q4H PRN PRN Reason: Heartburn Lactated Ringer's (Lr) 1,000 mls @ 150 mls/hr IVCONT .Q6H40M [facility] Last Infusion: 02/05/25 08:58 Dose: 150 mls/hr Documented By: ALDAIR Magnesium Hydroxide (Milk Of Magnesia 30 Ml Oral.Susp) 30 ml PO DAILY PRN PRN Reason: Constipation Melatonin (Melatonin 3 Mg Tablet) 6 mg PO BEDTIME PRN PRN Reason: Insomnia Sodium Chloride (0.9 % Sodium Chloride Flush 3 Ml Syringe) 3 ml IVFLUSH QSHIFT [facility] Last Admin: 02/05/25 08:59 Dose: Not Given Documented By: ALDAIR Non-Admin Reason: IV Running Labs 02/05/25 07:24 02/05/25 07:24 Labs: Laboratory Results - last 24 hr 02/04/25 02/04/25 02/05/25 12:23 15:29 07:24 MCV 81.4 83.7 MCH 30.3 30.2 MCHC 37.3 H 36.1 H RDW 12.4 12.8 Plt Count 251 200 MPV 9.5 9.7 Immature Gran % (Auto) Cancelled Neut % (Auto) Cancelled Lymph % (Auto) Cancelled [place] % (Auto) Cancelled Eos % (Auto) Cancelled Baso % (Auto) Cancelled Lymph # (Auto) Cancelled [place] # (Auto) Cancelled Eos # (Auto) Cancelled Baso # (Auto) Cancelled Abs Immat Gran (auto) Cancelled Absolute Neuts (auto) Cancelled Absolute Nucleated RBC 0.000 0.000 Nucleated RBC % (auto) 0.0 0.0 Neutrophils % (Manual) 90 H Band Neutrophils % 3 Lymphocytes % (Manual) 4 L Monocytes % (Manual) 3 Abs Neuts (Manual) 16.5 H Lymphocytes # (Manual) 0.7 L Monocytes # (Manual) 0.5 Platelet Estimate NORMAL Plt Morphology Comment NORMAL RBC Morphology NORMAL Anion Gap 15 9 L Estim Creat Clear Calc 80.7 114.9 Estimated GFR 54 > 60 Random Glucose 91 93 Estimat Average Glucose 103 Hemoglobin A1c % 5.2 Calcium 9.4 8.6 D Iron 94 TIBC 232 % Saturation 41 Unsat Iron Binding 138 Total Bilirubin 0.6 0.7 Direct Bilirubin 0.3 0.3 AST 86 H 183 H ALT 101 H 94 H Alkaline Phosphatase 115 95 Total Creatine Kinase 2654 H 6608 H Total Protein 7.4 6.3 L Albumin 4.8 3.9 Lipase 21 Urine Color Yellow Urine Appearance Clear Urine pH 5.5 Ur Specific [place] <= 1.005 Urine Protein Negative Urine Glucose (UA) Negative Urine Ketones Trace Urine Blood Large (3+) H Urine Nitrite Negative Ur Leukocyte Esterase Negative Urine RBC 0-2 Urine WBC 0-5 Ur Squamous Epith Cells 0-2 Urine Bacteria None Seen Hyaline Casts 0-2 Hep Bs Antigen Negative Hep Bs Antibody REACTIVE Hep B Core Total Ab Nonreactive Hepatitis C Ab (EIA) Nonreactive Assessment and Plan (1) Acute renal failure due to rhabdomyolysis: Status: Acute Plan 29M no significant medical history presented with fatigue found to have abnormal troponin, CPK, elevated creatinine, elevated transaminases Acute kidney injury due to acute rhabdomyolysis IV fluids, monitor BMP and CPK Elevated troponin ? due to rhabdo echo, cardio eval Elevated transaminases Patient reports these are chronic viral hepatitis negative Low risk for DVT-early ambulation Full Code reason for continued hospitalization:ivf for rhabdo Quality Stroke Does the patient have a stroke diagnosis?: No VTE Prior VTE?: No VTE Risk Level:: Medical - low VTE Device Contraindication: Treatment Not Indicated VTE Drug Contraindication: Treatment Not Indicated
--- NOTE | 2025-02-05 10:34 | MHC.CM.PN ---
Changed to Inpatient.
[2025-02-05 12:00] VITALS: BP 140/87; PULSE 82; RESP 18; TEMP 36.8; O2SAT 97
[2025-02-05] MEDS: Lactated Ringers 1,000 ML 150 ML IVCONT ×2 (13:41→20:50)
[2025-02-05 15:26] VITALS: BP 140/84; PULSE 75; RESP 16; TEMP 36.8; O2SAT 96
[2025-02-05 16:01] VITALS: BMI 30.2
[2025-02-05 19:45] VITALS: BP 139/82; PULSE 76; RESP 16; TEMP 37.1; O2SAT 93
[2025-02-05 23:08] VITALS: BP 142/79; PULSE 58; RESP 16; TEMP 36.7; O2SAT 98
[2025-02-06 03:32] VITALS: BP 137/64; PULSE 69; RESP 16; TEMP 36.4; O2SAT 100
[2025-02-06] MEDS: Lactated Ringers 1,000 ML 150 ML IVCONT (03:58)
[2025-02-06 06:56] VITALS: BP 148/74; PULSE 60; RESP 18; TEMP 36.6; O2SAT 98
[2025-02-06 07:21] LABS: Hematocrit 36.4 % (42.0-52.0); Hemoglobin 12.7 g/dl (14.0-18.0); Mean Corpuscular HGB Conc 34.9 g/dl (31.0-36.0); Mean Corpuscular Hemoglobin 30.0 pg (27.0-33.0); Mean Corpuscular Volume 85.8 fL (80.0-98.0); NRBC Abs Auto 0.000 X10*3/uL (0.0-0.012); NRBC Pct Auto 0.0 /100WBC (0.0-0.2); Platelet Count 195 X10*3/uL (160-400); Red Blood Count 4.24 X10*6/uL (4.60-5.80); White Blood Count 7.0 X10*3/uL (4.8-10.8)
[2025-02-06 07:22] LABS: Anion Gap 8 (12-20); Blood Urea Nitrogen 9 mg/dL (9-16); Calcium 8.3 mg/dL (8.4-10.2); Carbon Dioxide 26 mmol/L (22-29); Chloride 113 mmol/L (96-108); Creatinine Clr Calc Pharmacy 126.6; Estimated Glomerular Filt Rate > 60; Potassium 3.7 mmol/L (3.3-5.1); Sodium 143 mmol/L (135-145)
--- NOTE | 2025-02-06 09:55 | MHC.CM.PN ---
Patient has been medically cleared for dc to home today, self care.
--- NOTE | 2025-02-06 11:01 | P.DS_ITS ---
DS: Providers Provider Date of Service: 02/06/25 Date of admission: 02/05/25 09:28 Date of discharge: 02/06/25 Primary care physician: Demi Lee MD Consults: 02/04/25 14:03 Consult to Cardiology Routine Consulting Provider: [facility] Reason for consultation: elevated trop Has provider been notified: Yes DS: Diagnosis Discharge Diagnosis (1) Cardiomyopathy: Status: Acute (2) Acute renal failure due to rhabdomyolysis: Status: Acute (3) Elevated troponin: Status: Acute (4) Abnormal LFTs: Status: Acute DS: Summary Hospital Course Hospital Course: from initial hpi: 29M no significant medical history presented with fatigue. Patient brought in by ambulance from [place]. 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 He started to feel weak, overheated and tired. Noted to be tachycardic and hypertensive. Rested but tachycardia did not resolve so EMS was called. Denies any chest pain, shortness breath. In ED lab significant for a creatinine of 1.52, AST 86/ALT 101 (patient reports he had elevated transaminases on outpatient testing previously), total CPK 2654, troponin 234 - normal EKG hospital course: Patient was admitted for acute kidney injury due to acute rhabdomyolysis. Was treated with IV fluids and creatinine returned to normal, CPK is down trending and is about 4000 at time of discharge. For elevated troponin was seen by Cardiology, echocardiogram showed mild cardiomyopathy with global hypokinesis EF of 45%. This is likely stress induced, recommendations were to follow up outpatient with repeat echo and exercise stress test. Patient should hold off on further training until cleared by Cardiology. Time Attestation Discharge Coordination Time (in mins): 36 Quality: Safe Use of Opioids Does Pt have an Active Cancer Diagnosis on the Problem List?: No Quality: Stroke Does the patient have a stroke diagnosis?: No Physical Exam Vital Signs: Vital Signs: Last Vital Signs Temp 97.9 F 02/06/25 06:56 Pulse 60 02/06/25 06:56 Resp 18 02/06/25 06:56 BP 148/74 H 02/06/25 06:56 Pulse Ox 98 02/06/25 06:56 O2 Del Method Room Air 02/06/25 06:56 BMI result Body Mass Index 30.2 General: AO X 3, no acute distress Resp: CTA bilateral, no accessory muscles used CVS: S1,S2,RRR GI: soft, non tender, non distended Neuro: motor grossly intact, alert Psych: appropriate affect, appropriate insight DS: Data Data Completed and Pending Labs on day of discharge: Laboratory Results - last 24 hr 02/06/25 06:27 WBC 7.0 RBC 4.24 L Hgb 12.7 L Hct 36.4 L MCV 85.8 MCH 30.0 MCHC 34.9 RDW 12.9 Plt Count 195 MPV 9.9 Absolute Nucleated RBC 0.000 Nucleated RBC % (auto) 0.0 Sodium 143 Potassium 3.7 Chloride 113 H Carbon Dioxide 26 Anion Gap 8 L BUN 9 Creatinine 0.98 Estim Creat Clear Calc 126.6 Estimated GFR > 60 Random Glucose 95 Calcium 8.3 L Total Creatine Kinase 4315 H Discharge Plan Discharge Anticipated Discharge Date/Time: 02/06/25 09:53 Patient Disposition: Home, Self-Care Discharge Diagnosis: rhabdo, cardiomyopathy Referrals: Demi Lee MD [Primary Care Provider, Internal Medicine] - 1 Week Discharge Medications: No Action No Known Home Meds Discharge Orders: Discharge Order (Routine); Ordered 02/06/25 Ordered By: Chapincito Armenta Diet: Advance to usual diet Activity on Discharge: As tolerated Stand Alone Forms: Patient Portal Discharge page Print Language: Greek Care Plan Goals: recovery Health Concerns: rhabdo, cardiomyopathy Plan of Treatment: drink plenty of fluids, follow up with cardiology, would not participate in training until cleared by cardiology Assessment: see above
[2025-02-08 10:23] LABS: Anti Nuclear Antibody Screen NEGATIVE (NEGATIVE)
== END 2025-02-06 14:19 | disposition home or self-care (01) | DRG 315 ==
LOC: HO.ED 14:20 → HO.EDOVER 14:30 → HO.IMC 16:07
PROVIDERS: Admitting Provider Internal Medicine; Emergency Provider Emergency Medicine; PCP Internal Medicine; Visit Provider Internal Medicine
DX: I51.81 Takotsubo syndrome (principal); M62.82 Rhabdomyolysis; N17.9 Acute kidney failure, unspecified
CPT/HCPCS: 36415; 71045; 80048; 80076; 81001; 82550; 83036; 83540; 83690; 84484; 85007; 85027; 86038; 86704; 86706; 86803; 87340; 93005; 93306; 99285; J7120; Q9957

== ENCOUNTER → 2025-02-04 13:26 | Outpatient (BNV) | payer OTHER, SELFPAY | PROVIDERS: Admitting Provider Internal Medicine; Emergency Provider Emergency Medicine; PCP Internal Medicine; Visit Provider Radiology Diagnostic Radiology | DX: M62.82 Rhabdomyolysis (principal) | CPT/HCPCS: 71045 ==

== ENCOUNTER 2025-02-04 14:29 | Outpatient (BNV) | payer OTHER, SELFPAY | END 2025-02-04 16:00 | PROVIDERS: Admitting Provider Internal Medicine; Emergency Provider Emergency Medicine; PCP Internal Medicine; Visit Provider Internal Medicine | DX: I51.89 Other ill-defined heart diseases (principal); R00.2 Palpitations | CPT/HCPCS: 93010; 93306 ==

== ENCOUNTER → 2025-02-04 14:29 | Outpatient (BNV) | payer OTHER, SELFPAY | PROVIDERS: Admitting Provider Internal Medicine; Emergency Provider Emergency Medicine; PCP Internal Medicine; Visit Provider Internal Medicine | DX: R79.89 Other specified abnormal findings of blood chemistry (principal) | CPT/HCPCS: 99223 ==

== ENCOUNTER → 2025-02-05 09:28 | Outpatient (BNV) | payer OTHER, SELFPAY | PROVIDERS: Admitting Provider Internal Medicine; Emergency Provider Emergency Medicine; PCP Internal Medicine; Visit Provider Internal Medicine | DX: I42.9 Cardiomyopathy, unspecified (principal); N17.9 Acute kidney failure, unspecified; M62.82 Rhabdomyolysis; R79.89 Other specified abnormal findings of blood chemistry | CPT/HCPCS: 99223 ==